=== PATIENT | male | born 1955 | race Caucasian/White ===

== ENCOUNTER 2024-01-30 20:31 | Emergency (ER) | payer MEDICARE, SELFPAY ==
[2024-01-30 20:32] VITALS: BP 118/61; PULSE 83; RESP 18; TEMP 36.9; O2SAT 96; BMI 35.7
[2024-01-30 20:43] LABS: Microscopic, Urine URINE MICROSCOPIC (MICROSCOPIC)
[2024-01-30 20:45] LABS: Appearance,Urine CLOUDY (Clear); Blood, Urine 3+ (Negative); Color,Urine BROWN (Yellow); Glucose,Urine (UA) TRACE (Negative); Ketones,Urine 1+ (Negative); Leukocyte Esterase,Urine 2+ (Negative); Nitrate,Urine POSITIVE (Negative); PH,Urine 6.5 (5.0-8.5); Protein,Urine 3+ (Negative); Specific Gravity, Urine >= 1.030 (1.005-1.030)
[2024-01-30 20:47] LABS: Bilirubin,Urine 2+ (Negative)
[2024-01-30 20:59] LABS: Bacteria,Urine 1+ /lpf; RBC,Urine 50-100 #/hpf (0-3); WBC,Urine 20-50 #/hpf (0-3)
[2024-01-30] MEDS: 0.9 % SODIUM CHLORIDE 1000ML 1,000 ML 999 ML IV (20:59)
[2024-01-30 21:00] VITALS: BP 120/67; PULSE 88; RESP 18; O2SAT 97
[2024-01-30] MEDS: CEFTRIAXONE SODIUM 1 GM in 0.9 % SODIUM CHLORIDE 50 ML IV (21:00)
--- NOTE | 2024-01-30 21:07 | [facility].EDGENADL ---
Discharge Plan Disposition Patient Disposition: Home, Self-Care Prescriptions Prescriptions: New amoxicillin-pot clavulanate 875-125 mg tablet 1 tab PO BID 10 Days Qty: 20 0RF Referrals Follow up/Referrals: Provider,Referral, MD [Referring] - See instructions Activity Restrictions/Add. Instructions Additional Instructions/Restrictions: Call your family doctor to establish care for this visit to the emergency department and schedule follow-up within 48 hours to ensure improvement. If you have any worsening of your condition or any other concerning signs or symptoms, return to the emergency department or your primary care doctor for further evaluation. Augmentin twice daily for 10 days. Be sure to follow-up with your family doctor to have your kidney function reevaluated. Today it was BUN 25, creatinine was 2.6. Clinical Impressions Clinical Impression: Urinary tract infection Instructions Patient Instructions: DI for Urinary Tract Infection (UTI), DI for Urinary Tract Infection in Children Discharge ED Provider: Salty Boyer General Adult HPI General Chief complaint: Urogenital-Male Stated complaint: Difficulty urinating Time Seen by Provider: 01/30/24 20:35 Mode of Arrival: Ambulatory Source of Information: Patient Limitations: No Limitations Description of Symptoms (Recalled from ER Triage Doc. by RN): 68 M presents from home s/p partial thyroidectomy on January 07. He reports urinary incontinence which has now turned into urinary retention. Patient adds that he has dysuria and hematuria. Denies fever or chills. History of Present Illness HPI narrative: Please note that above description of symptoms, in this electronic medical record under categorization of recalled from ER triage doctor by RN are reflective of an initial nursing assessment, however, is not reflective of my full history and physical exam that was personally taken and clarified. Consequentially, this preceding description of symptoms, which may include the patient's categorized chief complaint in the EMR, do not reflect my personal clinical impression, and the ultimate description of history of present illness and patient stated complaints should be deferred to this section of the note. Unless stated otherwise or congruent with this section of the note, additional signs, symptoms, or incongruence should be interpreted as inaccurate with my clinical impression. Related Data Previous Rx's Medication Instructions Recorded amoxicillin 875 mg-potassium 1 tab PO BID 10 days #20 tabs 01/30/24 clavulanate 125 mg tablet Allergies Allergy/AdvReac Type Severity Reaction Status Date / Time No Known Allergies Allergy Verified 01/30/24 20:41 [facility] Disclaimer: The information contained in this section may have been updated after the patient was seen, as this information can be updated by other users. Social History Smoking Status: Former smoker alcohol intake: never current occupational status: employed Travel in the last 8 weeks: None ROS Obtained: Yes All systems reviewed & no additional complaints except as documented Physical Exam General General appearance: alert and in no apparent distress Head Head exam: atraumatic and normocephalic Eye Eye exam: Present normal appearance, PERRL and EOMI ENT ENT exam: Present mucous membranes moist Neck Neck exam: Present normal inspection, full ROM and trachea midline Respiratory Respiratory exam: Absent respiratory distress, wheezes, stridor, accessory muscle use or prolonged expiratory phase Cardiovascular Cardiovascular exam: Present normal rhythm Abdominal Exam Abdominal exam: Present soft; Absent distention, tenderness, guarding, rebound or rigidity Extremities Exam Extremities exam: Absent edema Neurological Exam Neurological exam: Present alert, oriented X3, CN II-XII intact and normal gait; Absent motor sensory deficit Skin Skin exam: Present warm and dry; Absent diaphoresis or erythema Medical Decision Making Medical Records Medical records reviewed: Yes I reviewed the patient's medical records. Roberto Inquiry Pt receiving controlled substance: No Roberto was queried for this patient: No Vital Signs: 01/30/24 20:32 01/30/24 21:00 Temperature 98.4 F Temperature Source Oral Pulse Rate 88 Pulse Rate [Left] 83 Respiratory Rate 18 18 Blood Pressure 120/67 Blood Pressure [Right Arm] 118/61 Blood Pressure Mean [Right Arm] 80 Blood Pressure Source [Right Arm] Automatic Cuff Blood Pressure Position [Right Arm] Sitting 02 Sat by Pulse Oximetry 96 97 Oxygen Delivery Method Room Air Room Air Lab Data Lab Results 01/30/24 20:37: Urine Color Brown, Urine Appearance Cloudy, Urine pH 6.5, Ur Specific Bynum >= 1.030, Urine Protein 3+, Urine Glucose (UA) Trace, Urine Ketones 1+, Urine Blood 3+, Urine Nitrate Positive, Urine Bilirubin 2+ A, Urine Urobilinogen 4.0, Ur Leukocyte Esterase 2+ A, Urine RBC 50-100, Urine WBC 20-50, Ur Squamous Epith Cells None, Urine Bacteria 1+ 01/30/24 20:50: Sodium 139, Potassium 4.5, Chloride 109 H, Carbon Dioxide 25, Anion Gap 9.5, BUN 25 H, Creatinine 2.60 H, Estimated Creat Clear 48, Estimated GFR 25 L, Est GFR ( Amer) 30 L, Glucose 120 H, Calcium 9.4 01/30/24 20:50 Orders (Tests/Meds): ED MEDICATIONS Discontinued Medications Generic Name Dose Route Start Last Admin Trade Name Edis PRN Reason Stop Dose Admin Ceftriaxone Sodium 1 gm/ 50 mls @ 100 mls/hr 01/30/24 20:49 01/30/24 21:00 Sodium Chloride IV 01/30/24 21:18 100 mls/hr ONCE ONE Administration Sodium Chloride 1,000 mls @ 999 mls/hr 01/30/24 20:49 01/30/24 20:59 Sod Chlor 0.9% 1000ml Bag IV 01/30/24 21:49 999 mls/hr .Q1H1M ONE Administration ORDERS Category Date Time Status BMP [Basic Metabolic Panel] Stat Lab 01/30/24 20:50 Completed UA [Urinalysis and Microscopic] Stat Lab 01/30/24 20:37 Completed Urine Culture Stat Micro 01/30/24 20:37 Received Medical Decision Narrative: 68-year-old male history of hypertension, hyperlipidemia, diabetes, recent thyroidectomy now on levothyroxine presenting with dysuria, hematuria, frequency and urgency. This has been going on for a couple of days at this point. Patient states that he is waking up in the middle of the night, needs to run to the restroom while applying pressure to his penis to prevent from dribbling. States that when he does urinate he does not get a whole lot of urine out. It does appear red. Also having dysuria. Unsure if he had a catheter during his recent thyroidectomy in the last few days days. No fevers or chills, flank pain, nausea or vomiting, or any other concerns. History was obtained via conversation with patient. On arrival, patient hemodynamically stable, alert, oriented x4, appropriate, GCS 15, moving all extremities spontaneously, pupils equal and reactive to light. Full physical exam performed and significant for well-appearing male no acute distress. Abdomen is soft, nontender, nondistended, no evidence of bladder distention. No flank tenderness. Differential includes urinary tract infection, urethritis, pyelonephritis, catheter associated UTI, malignancy, nephrolithiasis, among others. Patient was given Rocephin 1 g for symptomatic management and correction of underlying abnormalities. Workup independently interpreted and significant for blood, ketones, protein, nitrates, leukocyte Estrace and bacteria concerning for developing pyelonephritis. Patient's BNP is concerning for BUN 25, creatinine 2.6. Because patient has known CKD on further conversation, 1 L fluids was given in addition to ceftriaxone. Conversation was had with patient regarding outpatient follow-up, he is agreeable to outpatient management and follow-up labs with his primary care provider, I feel this is appropriate. Out of concern for possible hospital-acquired catheter associated urinary tract infection given recent surgery, MRSA coverage and E. coli coverage with Augmentin to be sent home. Avoiding b Bactrim out of concern for nephritis and fluoroquinolones due to age and comorbidities. Because patient at baseline without signs or symptoms of clinical decompensation, deemed appropriate for discharge. Results were relayed to patient who voiced understanding and were agreeable to outpatient management and follow up. I discussed my clinical impression with patient and answered all questions. At this time, the evidence for any other entities in the differential is insufficient to warrant any further testing or ED observation. This was explained as well. Advisory was given that persistent or worsening symptoms require further evaluation. I confirmed the understanding of this discussion. Critical Care Critical Care Time Critical Care Time: No
[2024-01-30 21:09] LABS: Chloride 109 mmol/L (98-107); Sodium 139 mmol/L (136-145)
[2024-01-30 21:10] LABS: Potassium 4.5 mmoL/L (3.5-5.1)
[2024-01-30 21:12] LABS: Anion Gap 9.5 mEq/L (5-15); Blood Urea Nitrogen 25 mg/dl (9-20); Carbon Dioxide 25 mmol/L (22.0-30.0); Creatinine Clearance Estimated 48 mL/min (50-200); Estimated Glomerular Filt Rate 25 ml/min (>60); GFR (African American) 30 ML/MIN (>60)
[2024-01-30 21:13] LABS: Calcium 9.4 mg/dl (8.4-10.2); Glucose 120 mg/dl (74-100)
[2024-01-30 22:42] VITALS: BP 114/75; PULSE 74; RESP 18; TEMP 36.8; O2SAT 97
--- NOTE | 2024-02-05 07:43 | PC.NURSE ---
urine culture final results discussed with , pt dc with augmentin, ntd
== END 2024-01-30 23:06 | disposition home or self-care (01) ==
PROVIDERS: Emergency Provider Emergency Medicine; PCP Registered Nurse
DX: N39.0 Urinary tract infection, site not specified (principal); B96.29 Other Escherichia coli [E. coli] as the cause of diseases classified elsewhere
CPT/HCPCS: 80048; 81001; 87086; 96365; 99284; J0696